=== PATIENT | male | born 1950 | race Caucasian/White ===

== ENCOUNTER 2020-09-23 13:21 | Emergency (ER) | payer SELFPAY ==
[~2020-09-23] VITALS: Ht 177.8 cm; Wt 77.1 kg
[2020-09-23] MEDS ORDERED: HEPARIN SODIUM (PORCINE) 5000 UNITS/ML 1ML VIAL IV ONE (13:30)
[2020-09-23] MEDS ORDERED: DEXTROSE 50% SYRINGE 100 ML IV ONE (13:44)
[2020-09-23 13:50] LABS: Eosinophils # (auto) 0.4 10 ^3/uL (0-0.8); Eosinophils % (auto) 4.2 % (0.0-7.0); Hemoglobin 13.2 g/dL (13.5-17.5); Mean Corpuscular Hemoglobin 34.3 pg (28.0-32.0); Monocytes # (auto) 0.7 10 ^3/uL (0-1.3)
[2020-09-23] MEDS ORDERED: SODIUM BICARBONATE 8.4% INJ 50ML SYRINGE ONE (13:50)
[2020-09-23 13:52] LABS: Basophils # (auto) 0.3 10 ^3/uL (0-0.2); Basophils % (auto) 3.3 % (0.0-2.0); Hematocrit 38.5 % (41.0-53.0); Lymphocytes # (auto) 3.4 10 ^3/uL (0.4-5.4); Lymphocytes % (auto) 33.5 % (10.0-50.0); Mean Corpuscular Hgb Conc. 34.3 g/dL (32.0-36.0); Mean Corpuscular Volume 100.2 fL (80.0-100.0); Monocytes % (auto) 6.3 % (0.0-12.0); Neutrophils # (auto) 5.4 10 ^3/uL (1.6-8.6); Neutrophils % (auto) 52.7 % (37.0-80.0); Red Blood Cells 3.84 10^6/uL (4.5-5.90); Red Cell Distribution Width 14.4 % (11.8-14.3); White Blood Cell 10.3 10^3/uL (4.4-10.8)
[2020-09-23] MEDS ORDERED: MIDAZOLAM HCL 2MG/2ML 2ml VIAL (1mg/ml) ONE (13:58)
[2020-09-23] MEDS ORDERED: fentaNYL CITRATE 100 MCG/2 ML VL ONE (13:58)
[2020-09-23] MEDS ORDERED: ANGIOMAX 250 MG VIAL IV ONE (13:58)
[2020-09-23] MEDS ORDERED: SODIUM CHL 0.9% 0 ML ONE (13:58)
[2020-09-23] MEDS ORDERED: ATROPINE SULF 1 MG/10ml SYR ONE (13:59)
[2020-09-23] MEDS ORDERED: DOPamine 1600MCG/ML D5W 0 ML IV ONE (14:00)
[2020-09-23] MEDS ORDERED: NOREPINEPHRINE 8 MG/250ML KIT 0 ML IV ONE (14:00)
[2020-09-23] MEDS ORDERED: IOHEXOL 350 MG/ML 100ML IJ ONE (14:02)
[2020-09-23] MEDS ORDERED: LIDOCAINE 2%HCL (LOCAL ANESTH.) INJ 20ML MDV ONE (14:02)
[2020-09-23] MEDS ORDERED: HEPARIN IN NS 1000Units/500mL 0 ML ONE (14:02)
[2020-09-23 14:07] LABS: INR 1.07 (0.9-1.15); Partial Thromboplastin Time 23.6 sec (23.0-31.2)
[2020-09-23 14:09] VITALS: BP 111/62
[2020-09-23 14:16] LABS: Albumin 3.4 g/dL (3.4-5.0); Magnesium 2.1 mg/dL (1.6-2.6); Potassium 3.5 mmol/L (3.5-5.1)
[2020-09-23 14:23] LABS: BUN/Creatinine Ratio 9.9; Bilirubin, Total 0.2 mg/dL (0.2-1.0); Total Protein 6.8 g/dL (6.4-8.2)
== END 2020-09-23 17:41 ==
LOC: EDBD 13:21 → ER 13:21
DX: I21.9 Acute myocardial infarction, unspecified (principal); I46.9 Cardiac arrest, cause unspecified; E11.65 Type 2 diabetes mellitus with hyperglycemia; I10 Essential (primary) hypertension
CPT/HCPCS: 31500; 36415; 80053; 83735; 84484; 85025; 85379; 85610; 85730; 86850; 86900; 86901; 92950; 93005; 99285; C1894; J7030; J7042; J2250